=== PATIENT | female | born 1970 | race Caucasian/White ===

== ENCOUNTER 2017-09-03 05:33 | Day surgery (SDC) | payer OTHER ==
[~2017-09-03] VITALS: Ht 165.1 cm; Wt 61.2 kg
[~2017-09-03 05:33] MED LIST: ADVIL200 MG PO; ALLEGRA60 MG PO; IRON325 M1 PO; SYNTHROID125 MCG PO
[2017-09-03 06:00] VITALS: BP 133/63
[2017-09-03 09:12] VITALS: BP 143/69
[2017-09-03 10:02] VITALS: BP 134/60
== END 2017-09-03 10:15 | disposition home or self-care (01) ==
LOC: SDC 05:33
DX: N84.0 Polyp of corpus uteri (principal); D64.9 Anemia, unspecified; N92.0 Excessive and frequent menstruation with regular cycle; E03.9 Hypothyroidism, unspecified
CPT/HCPCS: 88305; J0690; J1100; J2405; J3010